=== PATIENT | female | born 1995 | race Caucasian/White ===

== ENCOUNTER → 2023-11-09 09:30 | Outpatient (BNV) | payer SELFPAY | PROVIDERS: PCP Internal Medicine; Visit Provider Radiology Diagnostic Radiology | DX: N60.21 Fibroadenosis of right breast (principal) | CPT/HCPCS: 76642 ==

== ENCOUNTER 2023-11-09 09:36 | Outpatient (REF) | payer SELFPAY ==
--- NOTE | ~2023-11-09 | US_ITS ---
EXAMINATION: US DIAGNOSTIC ULTRASOUND BREAST, right. CLINICAL INFORMATION: 28-year-old female complaining of palpable foci right breast 5:00 axis, and right breast 11:00 axis. COMPARISON: None available. TECHNIQUE: Ultrasound of the breast is performed with real-time nascimento scale imaging and color Doppler. The right breast was scanned in the upper outer and lower inner quadrants, to include the palpable foci. FINDINGS: At the 5:00 axis, there is no suspicious abnormality. No mass, cystic abnormality, abnormal shadowing, or other. No correlate to the palpable focus of concern is identified on ultrasound. At the 11:00 axis right breast, 3 cm from the nipple, there is an oval hypoechoic mass with good through transmission, circumscribed, no internal color Doppler flow, and a subtle pseudocapsule, findings highly suggestive of a benign fibroadenoma. This measures 1.7 x 1.7 x 1.0 cm. It abuts the pectoralis fascia. Results are discussed with the patient at time of visit with the aid of a top distribution executive. US/US breast RT limited mamm only IMPRESSION: 1. No findings in the right breast suspicious for malignancy. 2. No abnormality at the right 5:00 axis to correlate with the palpable focus of concern. Clinical management recommended. 3. 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 No definite suspicious features. Because the patient is patent out of pocket without insurance, biopsy was deferred, with a 6 month follow-up targeted right breast ultrasound being a reasonable alternative given her lack of insurance. Biopsy could be pursued once the patient establishes insurance at that time. Findings were discussed with the patient via sports analyst, who agreed with the overall plan. ASSESSMENT: BI-RADS 3 - Probably benign finding(s) - 12 month follow-up suggested RECOMMENDATION: 6 Month F/U
== END 2023-11-09 09:37 | disposition home or self-care (01) ==
LOC: HO.MAMMO 09:36
PROVIDERS: PCP Internal Medicine; Visit Provider Internal Medicine
DX: N63.15 Unspecified lump in the right breast, overlapping quadrants (principal)
CPT/HCPCS: 76642

== ENCOUNTER 2024-01-11 20:02 | Outpatient (REF) | payer SELFPAY ==
[2024-01-12 10:51] LABS: Bacterial Vaginosis PCR POSITIVE (Negative); Candida Group PCR NOT DETECTED (Not Detect); Candida glab krusei PCR NOT DETECTED (Not Detect); Trichomonas vaginalis PCR NOT DETECTED (Not Detect)
[2024-01-19 02:18] LABS: C. trachomatis RNA TMA NOT DETECTED (NOT DETECTED); N. gonorrhoeae RNA TMA NOT DETECTED (NOT DETECTED)
[2024-01-19 04:34] LABS: Trichomonas (NAAT) NOT DETECTED (NOT DETECTED)
== END 2024-01-11 20:03 | disposition home or self-care (01) ==
LOC: HO.HHCLNP 20:02
PROVIDERS: Visit Provider Internal Medicine
DX: N89.8 Other specified noninflammatory disorders of vagina (principal)
CPT/HCPCS: 0352U; 36415; 87491; 87591; 87661; 88142

== ENCOUNTER 2025-03-11 13:40 | Outpatient (REF) | payer SELFPAY ==
--- OUTSIDE RECORDS SUMMARY | 2025-03-11 15:02 | XMS_ITS | Encounter Summary ---
Author Organization [employer] Address [address] [place] [address] Care Team Providers Care Sheet Rock Sander Name Role Phone Lena Berry MD Primary Care Provide r Encounter Details Date Type Department Care Team (Late st Contact Info) Description 03/20/2023 Abstract [facility] [address] [place] [address] Ricardo Winterhan, ISSA [address] [place] [address] Social History Tobacco Use Types Packs/Day Years Used Date Smoking Tobacco: Never Smokeless Tobacco: Never Alcohol Use Standard Drinks/Week Comments Never 0 (1 standard drink = 0.6 oz pur e alcohol) Comments Unknown Sex and Gender Information Value Date Recorded Sex Assigned at Female 02/20/2023 10:11 AM EDT Legal Sex Female 8:40 PM EDT Gender Identity Female 02/20/2023 10:11 AM EDT Sexual Orientation Choose not to disclose 2022 10:11 AM EDT COVID-19 Exposure Response Date Recorded In the last 10 days, have yo u been in contact with someone who was confirmed or suspected to have Coronavirus/COVID-19? No / Unsure 02/20/2023 1:05 PM EDT documented as of this encounter Plan of Treatment Not on file documented as of this encounter Visit Diagnoses Not on filedocumented in this encounter Care Teams Sheet Rock Sander Relationship Specialty Start Date End Date Lena Berry MD [address] [place] [address] PCP - General Family Medicine 02/08/22 documented as of this encounter
[2025-03-11 16:23] LABS: MANUAL DIFF FLAG NO
[2025-03-11 16:32] LABS: Hematocrit 43.1 % (37.0-47.0); Hemoglobin 14.5 g/dl (12.0-16.0); Imm Gran Abs Auto 0.03 X10*3/uL (0.00-0.03); Imm Gran Pct Auto 0.5 % (0.0-0.4); Lymphocytes Absolute Auto 2.1 X10*3/uL (1.2-4.9); Mean Corpuscular HGB Conc 33.6 g/dl (31.0-35.0); Mean Corpuscular Hemoglobin 30.9 pg (27.0-33.0); Mean Corpuscular Volume 91.7 fL (80.0-98.0); NRBC Abs Auto 0.000 X10*3/uL (0.0-0.012); NRBC Pct Auto 0.0 /100WBC (0.0-0.2); Platelet Count 292 X10*3/uL (160-400); Red Blood Count 4.70 X10*6/uL (4.20-5.50); White Blood Count 6.6 X10*3/uL (4.8-10.8)
[2025-03-12 04:02] LABS: Syphilis Screen Nonreactive (Nonreactive)
[2025-03-13 20:59] LABS: Anti Nuclear Antibody Screen NEGATIVE (NEGATIVE)
== END 2025-03-11 13:41 | disposition home or self-care (01) ==
LOC: HO.HHCL 13:40
PROVIDERS: PCP Internal Medicine; Visit Provider Internal Medicine
DX: L30.9 Dermatitis, unspecified (principal)
CPT/HCPCS: 36415; 84443; 85025; 85652; 86038; 86780